=== PATIENT | male | born 1955 | race Caucasian/White ===

== ENCOUNTER 2018-11-08 06:26 | Day surgery (SDC) | payer MEDICARE ==
[2018-11-08] MEDS ORDERED: PROPOFOL 10 MG/ML VIAL IV ONE (06:27)
[2018-11-08] MEDS ORDERED: LIDOCAINE 2% MDV (20MG/ML) 20ML VIAL IV ONE (06:27)
[2018-11-08] MEDS ORDERED: RINGERS SOLUTION,LACTATED 1,000 ML IV ONE ×2 (07:15)
[2018-11-08] MEDS ORDERED: LIDOCAINE 1% W/EPI 1:100,000 MDV 20 ML VIAL SQ ONE (08:26)
[2018-11-08] MEDS ORDERED: DEXAMETHASONE PRESERVATIVE FREE 10MG/ML VIAL SQ ONE (08:27)
[2018-11-08] MEDS ORDERED: BUPIVACAINE 0.5% W/EPI MPF 30 ML VIAL SQ ONE (08:27)
--- NOTE | 2018-11-08 19:40 | Operative Note ---
DATE OF SURGERY: 11/08/2018 PREOPERATIVE DIAGNOSIS: Right cervical spondylosis without myelopathy. ICD10 code M47.812. OPERATION: Radiofrequency rhizotomy of right cervical facets 3-4, 4-5, 5-6, 6-7. INDICATIONS: This patient presents with pain which is right-sided neck. Examination showed tenderness of the cervical spine. Range of motion does cause pain to the neck with extension. Diagnostics show multilevel spondylosis and end plate changes. A facet series 75% relief. Due to the failure of therapy and success of facet series, patient presents for rhizotomy for more long-term relief. PROCEDURE: Intravenous line, vital sign monitoring, IV sedation, prepped and draped in sterile technique. Under imaging, cervical facet levels in the area of pain were identified and marked at 3-4, 4-5, 5-6, and 6-7. Each one of these points on the skin infiltrated. A 22-gauge rhizotomy cannula positioned. Stimulation trial was conducted. Rhizotomy burn 80 degrees 90 seconds. Local with antiinflammatory into the sites. Topical antibiotic and sterile dressing applied. Will monitor and evaluate. His position was prone. Prep was sterile. Procedure was atraumatic. CC: Dr. Joseline BRICEÑO
== END 2018-11-08 09:13 | disposition home or self-care (01) ==
LOC: SUR 06:26
PROVIDERS: ATTEND Pain Medicine Interventional Pain Medicine
DX: M47.812 Spondylosis without myelopathy or radiculopathy, cervical region (principal); I10 Essential (primary) hypertension
CPT/HCPCS: 64633; 64634 ×3; 01936; J1100; J7120